=== PATIENT | male | born 1980 | race Caucasian/White ===

== ENCOUNTER 2020-02-26 21:36 | Emergency (ER) | payer OTHER ==
[~2020-02-26] VITALS: Ht 172.7 cm; Wt 86.3 kg
[2020-02-26] MEDS ORDERED: CYCL10TA9 PO (21:54)
[2020-02-26] MEDS ORDERED: IBUP-1780 PO (21:54)
[2020-02-26] MEDS ORDERED: HYDR-83 PO (21:54)
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
[2020-02-26] MEDS ORDERED: HYDROcodone/APAP 10 MG/325 MG (LORTAB) TAB PO ONE ×2 (21:55→22:00)
[2020-02-26 22:05] VITALS: BP 148/83
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
== END 2020-02-26 22:11 | disposition home or self-care (01) ==
LOC: EDUNIT# 21:36 → ER FS 21:41
DX: S20.212A Contusion of left front wall of thorax, initial encounter (principal); S40.012A Contusion of left shoulder, initial encounter; V67.5XXA Driver of heavy transport vehicle injured in collision with fixed or stationary object in traffic accident, initial encounter
CPT/HCPCS: 71045